=== PATIENT | female | born 1955 | race Caucasian/White ===

== ENCOUNTER → 2022-03-06 11:04 | Outpatient (CLI) | payer BC, SELFPAY ==
--- NOTE | ~2022-03-06 | DEXA_ITS ---
Bone Density Report Name: ABBIE GRAHAM Age: 66 Sex: Female Ethnicity: White Date of : 1955 Indication: postmenopausal; screening for osteoporosis; parental hip fracture; height loss; history of glucocorticoids; hysterectomy; rheumatoid arthritis; secondary osteoporosis; Referring Provider: OANH KRAFT Study: Bone densitometry was performed. Exam Date: March 06, 2022 Accession number: [id number] Bone Density: Region BMD T-score Z-score Classification AP Spine (L1-L4) 0.948 -0.9 0.8 Normal Femoral Neck (Left) 0.771 -0.7 0.8 Normal Total Hip (Left) 0.937 0.0 1.2 Normal Femoral Neck (Right) 0.715 -1.2 0.3 Osteopenia Total Hip (Right) 0.899 -0.4 0.9 Normal Total Hip Mean 0.918 -0.2 1.1 Normal World Health Organization criteria for BMD impression classify patients as: Normal (T-score at or above -1.0), Osteopenia (T-score between -1.0 and -2.5), or Osteoporosis (T-score at or below -2.5). 10-year Fracture Risk(1): Major Osteoporotic Fracture 29% Hip Fracture 1.6% Reported Risk Factors: [place] (), Neck BMD=0.715, BMI=35.1, parental fracture, glucocorticoids, rheumatoid arthritis, secondary osteoporosis (1) FRAX(R) Version 3.08. Fracture probability calculated for an untreated patient. Fracture probability may be lower if the patient has received treatment. Clinical Information Provided by Patient: Parent has had a hip fracture Has taken Glucocorticoids Has rheumatoid arthritis Has secondary osteoporosis Has used the following medications: Vitamin D Has the following medical conditions: Hysterectomy Patient maximum height was 69.5 Menopause Age: 41 No regular weight bearing exercise Drinks caffeinated beverages Onset of menses at age 13 Number of children 2 Impression: The patient has low bone mass, based on the Right Femoral Neck T-score. The patient has an estimated ten-year risk of hip fracture of 1.6% and an estimated ten-year risk of major fracture of 29%, based on the WHO FRAX algorithm. The patient has risk factors, including: parental hip fracture, history of glucocorticoid therapy. Discussion: BONE DENSITY IS LOW AT ONE OR MORE SKELETAL SITES. THE PATIENT'S BMD AND CLINICAL RISK FACTORS CONTRIBUTE TO THIS PATIENT'S INCREASED RISK OF FRACTURE. This patient's lowest T-score is low at one or more skeletal sites. It meets the World Health Organization's (WHO) criteria for ?low bone mass? (T-score between -1.0 and -2.5). The patient's 10-year risk of a major osteoporotic fracture as calculated by FRAX exceeds the threshold where pharmacological therapy is recommended by the National Osteoporosis Foundation (NOF). However, all treatment decisions require clinical judgment and consideration of individual patient factors, including patient preferences, comorbidities, previ
== END ==
PROVIDERS: PCP Family Medicine Adolescent Medicine; Visit Provider Physician Assistant
DX: Z78.0 Asymptomatic menopausal state (principal); E89.40 Asymptomatic postprocedural ovarian failure; Z90.710 Acquired absence of both cervix and uterus; M85.851 Other specified disorders of bone density and structure, right thigh
CPT/HCPCS: 77080

== ENCOUNTER → 2023-04-28 13:32 | Outpatient (CLI) | payer BC, SELFPAY ==
--- NOTE | ~2023-04-28 | MM_ITS ---
EXAMINATION: MM screening sariah BI w shannan HISTORY: Screening mammogram TECHNIQUE: Craniocaudal and mediolateral oblique 3-D tomosynthesis images were obtained and synthetic 2-D images were generated. CAD analysis was submitted and interpreted. COMPARISON: 07/15/2018 bilateral screening mammogram BREAST PARENCHYMAL COMPOSITION: The breasts are almost entirely fatty. FINDINGS: There is no evidence of suspicious mass, calcification, or architectural distortion to sugg est malignancy in either breast. There has been no suspicious interval change. IMPRESSION: 1. No mammographic evidence of malignancy. 2. Recommend routine screening mammography in one year. BI-RADS Category 1: Negative Reviewed, dictated and finalized at location A. [employer]
== END ==
PROVIDERS: PCP Family Medicine Adolescent Medicine; Visit Provider Family Medicine Adolescent Medicine
DX: Z12.31 Encounter for screening mammogram for malignant neoplasm of breast (principal)
CPT/HCPCS: 77063; 77067